=== PATIENT | male | born 1985 | race Two or more races ===

== ENCOUNTER 2024-11-08 16:25 | Emergency (ER) | payer BC, OTHER ==
[~2024-11-08] VITALS: Ht 167.6 cm; Wt 92.4 kg
--- NOTE | 2024-11-08 17:19 | ED.PDOC ---
General HPI Comments HPI: 39 y/o M, Tunisian speaking only, presents to the ED for CC of groin pain. Patient states, he has been experiencing left groin pain with associated intermittent LLQ abdominal pain that radiates to his testicles x5 months. Patient relays, additional symptoms of frequency and dysuria. Patient comments on, LLQ pain worsening when having a bowel moment feeling a sharp bulging pain in that area. Patient endorses that he works out regularly; is unsure if symptoms are related. Patient denies nausea, vomiting, fever, hematuria, testicular swelling, or penile discharge. No other symptoms or modifying factors at this time. VITALS: T:98.5 RR:18 HR:75 BP:119/77 SPO2:97% Past Medical History: ANEMIA Past Surgical History: TONSILLECTOMY HPI: Poor Historian. REVIEW OF SYSTEMS: CONSTITUTIONAL: Denies acute: fever, diaphoresis, chills, HEAD: Denies acute: headache, photophobia Eyes: Denies acute: Double vision, vision loss, eye pain, eye discharge. EARS: Denies acute: tinnitus, hearing loss, ear discharge, ear pain, THROAT: Denies acute: sore throat, swelling, difficulty swallowing , pain with swallowing, change in voice. NECK: Denies acute: neck pain, neck swelling, stiff neck. HEART: Denies acute : chest pain, palpitations, LUNGS: Denies acute: SOB, wheezing, cough, hemoptysis ABDOMEN: Denies acute: Nausea, Vomiting, diarrhea, melena , hematemesis, hematochezia SKIN: Denies acute: rash, redness, lesions, itchiness. EXTREMITIES: Denies acute: calf pain, numbness, tingling, weakness, denies pain in extremity. Denies acute: Low back pain. Neuro: Denies acute: focal neurological deficit, motor or sensory focal neurological deficit, tremors, seizure like activity, confusion, dizziness, change in mental status, loss of bowel or bladder function, cauda equina like symptoms. : Denies acute: , hematuria, flank pain, increase in urinary frequency. PSYCH: Denies acute: hallucination, suicidal ideation, homicidal ideation. PHYSICAL EXAM: General: --mild------acute distress, awake and alert. Head: normocephalic, atraumatic. Neck: supple, trachea is midline, no swelling. Throat: Normal phonation. Eyes:, no erythema, no purulent discharge, no proptosis, no icterus. Heart: regular rate, regular rhythm, no significant murmur appreciated. Lungs: no apparent respiratory distress, Able to speak in full sentences. No wheezing, no rhonchi, no crackles. No stridors Clear to auscultation bilaterally. Abdomen: Left upper quadrant tender to palpation, non distended, soft, no guarding, no rebound, + bowel sounds. Neuro: Awake, Alert, oriented to name, self, situation, follows commands GCS=15. Speech is normal. Skin: no petechia, no purpura, no cyanosis, non-pale, not jaundice. Lower extremities: --no - Pitting edema no deformity, no focal swelling, no calf TTP. Makes eye contact. moves all four extremities. Face: no apparent facial droop. No CVA tenderness to percussion bilaterally. Ambulating in the ED independently. ED COURSE: Chief Complaint: Abdominal Pain Time Seen by MD: 17:00 Reviewed notes: Nurses Notes, Medications, Allergies Allergies: Coded Allergies: NO KNOWN ALLERGIES (Unverified , 11/08/24) Home Meds Active Scripts Ciprofloxacin Hcl (Cipro) 500 Mg Tab, 500 MG PO BID for 7 Days, #14 TAB Prov:GILDARDO RUST DO 11/08/24 Information Source: Patient Mode of Arrival: Ambulatory Severity: Moderate Inability to void: None Timing: Months Duration: Since onset Prehospital treatment: None Onset: Spontaneous Symptoms: Dysuria, Frequency History of: None Location: None Penile discharge: None Modifying factors: None associated signs and symptoms: Dysuria, Frequency Was a procedure done? Was a procedure done?: No Differential Diagnosis Kidney stone (Female): N/A Urinary Problem (Male): Other (DDX include but not limited to diverticulitis, colitis, gastroenteritis, acute abdomen, SBO, enteritis, constipation, volvulus, appendicitis, Gallbladder disease, choledocolithiasis, ascending cholangitis, pancreatitis, intraAbdominal mass/neoplasm, hepatitis, UTI, pylonephritis, kidney stone, aneurysm, dissection, Inflammatory bowel disease, gastroparesis, ischemic bowel.) X-Ray, Labs, Meds, VS Vital Signs Date Time Temp Pulse Resp B/P (MAP) Pulse Ox O2 Delivery O2 Flow Rate FiO2 11/08/24 20:25 86 10 95 Room Air* 0 21 11/08/24 20:25 98.2 86 10 122/83 (96) 95 98.2 11/08/24 17:10 98.5 75 18 119/77 (91) 97 98.5 Lab Test 11/08/24 17:30 11/08/24 16:40 Range/Units White Blood Count 9.6 4.4-10.8 10^3/uL Red Blood Count 6.56 H 4.5-5.90 10^6/uL Hemoglobin 12.6 L 13.5-17.5 g/dL Hematocrit 39.7 L 41.0-53.0 % Mean Corpuscular Volume 60.4 L 80.0-100.0 fL Mean Corpuscular Hemoglobin 19.2 L 28.0-32.0 pg Mean Corpuscular Hemoglobin Concent 31.7 L 32.0-36.0 g/dL Red Cell Distribution Width 15.8 H 11.8-14.3 % Platelet Count 299 140-450 10^3/uL Mean Platelet Volume 8.8 6.9-10.8 fL Neutrophils (%) (Auto) 71.0 37.0-80.0 % Lymphocytes (%) (Auto) 22.6 10.0-50.0 % Monocytes (%) (Auto) 5.4 0.0-12.0 % Eosinophils (%) (Auto) 0.2 0.0-7.0 % Basophils (%) (Auto) 0.8 0.0-2.0 % Neutrophils # (Auto) 6.8 1.6-8.6 10 ^3/uL Lymphocytes # (Auto) 2.2 0.4-5.4 10 ^3/uL Monocytes # (Auto) 0.5 0-1.3 10 ^3/uL Eosinophils # (Auto) 0 0-0.8 10 ^3/uL Basophils # (Auto) 0.1 0-0.2 10 ^3/uL Nucleated Red Blood Cells 0.1 % Sodium Level 140 136-145 mmol/L Potassium Level 4.5 3.5-5.1 mmol/L Chloride Level 105 98-107 mmol/L Carbon Dioxide Level 29 20-31 mmol/L Anion Gap 6 5-15 Blood Urea Nitrogen 11 9-23 mg/dL Creatinine 0.82 0.700-1.30 mg/dL Glomerular Filtration Rate Calc 113 >90 mL/min BUN/Creatinine Ratio 13.4 10.0-20.0 Serum Glucose 93 74-106 mg/dL Lactic Acid Level 1.3 0.4-2.0 mmol/L Calcium Level 10.3 8.7-10.4 mg/dL Total Bilirubin 0.4 0.2-1.0 mg/dL Aspartate Amino Transferase (AST) 15 13-40 U/L Alanine Aminotransferase (ALT) 27 7-40 U/L Alkaline Phosphatase 73 46-116 U/L Creatine Kinase 109 46-171 U/L Troponin I High Sensitivity < 3 L </=54 ng/L C-Reactive Protein High Sensitivity 0.19 <1.0 mg/dL Total Protein 8.2 5.7-8.2 g/dL Albumin 5.2 H 3.2-4.8 g/dL Lipase 30 12-53 U/L Urine Color Light-yellow Yellow Urine Clarity Clear Clear Urine pH 6.5 5.0-9.0 Urine Specific Dougherty 1.011 1.001-1.035 Urine Protein Negative Negative Urine Ketones Negative Negative Urine Blood Trace H Negative /uL Urine Nitrite Negative Negative Urine Bilirubin Negative Negative Urine Urobilinogen Normal Negative mg/dL Urine Leukocyte Esterase Negative Negative /uL Urine RBC 2 0 - 3 /hpf Urine Microscopic WBC < 1 0-3 /HPF Urine Squamous Epithelial Cells None seen <5 /hpf Urine Bacteria None seen None Seen /hpf Urine Mucus Few None Seen Urine Glucose Normal Normal mg/dL [place] [address] Ph: [phone] DIAGNOSTIC IMAGING Diagnostic Imaging Report : [id number] Signed PATIENT: MAMIE BELLAMY ACCT: [id number] UNIT: [id number] : 1985 LOC: ER ROOM / BED: / AGE / SEX: 39 / M ADM STATUS: REG ER SERVICE 1703 ORDERING PHYSICIAN: GILDARDO RUST DO PROCEDURE(s): CXRP - CHEST PORTABLE REASON: weak ORDER NUMBER(s): [id number], ACCESSION NUMBER(s): [id number] CHEST RADIOGRAPH Indication: weak Technique: Single frontal view of the chest was obtained Comparison: None FINDINGS: Lines and Tubes: None Lungs: No focal consolidation. Pleura: No effusion. No pneumothorax. Cardiomediastinal contours: Unremarkable Bones: No acute osseous abnormality. IMPRESSION: 1. No acute cardiopulmonary disease. 2. No pulmonary consolidations. ATED BY: KRYSTIAN FRYE Jr., DO DICTATED DATE/TIME: 11/08/241757 SIGNED BY: KRYSTIAN FRYE Jr., SIGNED DATE/TIME: 11/08/241757 CC: [place] [address] Ph: [phone] DIAGNOSTIC IMAGING Diagnostic Imaging Report : [id number] Signed PATIENT: MAMIE BELLAMY ACCT: [id number] UNIT: [id number] : 1985 LOC: ER ROOM / BED: / AGE / SEX: 39 / M ADM STATUS: REG ER SERVICE 02 ORDERING PHYSICIAN: GILDARDO RUST DO PROCEDURE(s): ABPL - CT AB PEL WO CON-NO ORAL OR IV REASON: LUQ and Left groin pain ORDER NUMBER(s): [id number], ACCESSION NUMBER(s): [id number] Incomplete report Procedure: CT CT AB PEL WO CON-NO ORAL OR IV 11/08/2024 05:34 PM Indication: LUQ and Left groin pain Comparison Study: None Technique: Axial images were obtained and reformatted in coronal and sagittal planes. All CT scans at this medical facility are performed using dose modulation techniques as appropriate to a performed exam including the following: Automated exposure control was utilized; adjustment of the MA and/or KV according to patient size; and use of iterative reconstruction technique. CT Dose: CTDI volume is 11.4 mGy. Dose-length product is 689 mGy*cm FINDINGS: Lower Chest: Unremarkable. Hepatobiliary: Unremarkable. Spleen: Unremarkable. Pancreas: Unremarkable. Adrenal Glands: Unremarkable. tract: The kidneys are normal in size bilaterally without hydronephrosis . A 3 mm nonobstructing stone is seen in the lower pole of the left kidney. The urinary bladder is unremarkable. GI tract: The stomach is grossly normal in appearance. No evidence of small bowel obstruction. The large bowel is unremarkable. The appendix is not visualized. No inflammatory change is noted in the right lower quadrant. Mild victor manuel mesentery at the level of proximal superior mesenteric artery with a few adjacent benign-appearing mesenteric lymph nodes. Lymphatics: No mesenteric, retroperitoneal or periportal lymphadenopathy. Vasculature: The abdominal aorta is normal in caliber. Pelvic Organs: Unremarkable. Bones/soft tissues: No acute abnormality. No inguinal hernia. Other: None. IMPRESSION: 1. Suggestion of mesenteric panniculitis in the left upper quadrant. 2. Subcentimeter nonobstructing left renal stone with no evidence of hydronephrosis. ATED BY: GRISELDA GODWIN MD DICTATED DATE/TIME: 11/08/241853 SIGNED BY: GRISELDA GODWIN MD SIGNED DATE/TIME: 11/08/241853 CC: Time of 1ST Reevaluation: 17:30 Reevaluation 1ST: Unchanged Patient Education/Counseling: Diagnosis, Treatment Family Education/Counseling: Other Comments Patient presented with the above HPI.--abdominal pain----workup was initiated. patient was found with the above mentioned diagnosis. the following medications were ordered: please refer to order lists of meds and tests obtained by myself Dr. Rust. Patient ED course and VS have been stabilized. Patient has been reassessed in the ED and remained in a stable condition. Pertinent incidental findings were discussed with the patient and/or family. Patient/family voices understanding and is agreeable with plan. Patient has been observed in the ED adequate length of time to insure improvement/stability. Escalation of care considered: Consideration of escalation to observation or admission Patient was DISCHARGED home in a stable condition. All the reports of any imaging studies that were ordered by myself were reviewed by myself. Departure 1 Departure Time of Disposition: 19:32 Impression: Primary Impression: Mesenteric panniculitis Additional Impression: Anemia Disposition: HOME / SELF CARE / HOMELESS Condition: Stable Additional Instructions: Additional discharge instructions: You MUST follow-up with your primary care/family doctor in 1 to 2 days. If you are unable to see your primary care/family doctor, please return to our emergency room for re-assessment and re-evaluation in 1 to 2 days. Return to the emergency room here in our facility or to the nearest ER [facility] if your symptoms change or worsen. CONSULTATIONS: you MUST Follow-up for consultation as soon as possible with: -gastroenterology in 1-2 days. Please call for appointment. You MUST call the consultants office yourself to make an appointment. You may need to arrange that through your insurance and/or your primary/family doctor. If you are unable to see the [employer] consultant in 1 to 2 days, you must return to our emergency room (or any other ER of your choice) for re-assessment and re- evaluation. Adequate fluid hydration. Below is a copy of your radiological report for follow up: [place] [address] Ph: [phone] DIAGNOSTIC IMAGING Diagnostic Imaging Report : [id number] Signed PATIENT: MAMIE BELLAMY ACCT: [id number] UNIT: [id number] : 1985 LOC: ER ROOM / BED: / AGE / SEX: 39 / M ADM STATUS: REG ER SERVICE 1703 ORDERING PHYSICIAN: GILDARDO RUST DO PROCEDURE(s): ABPL - CT AB PEL WO CON-NO ORAL OR IV REASON: LUQ and Left groin pain ORDER NUMBER(s): [id number], ACCESSION NUMBER(s): [id number] Incomplete report Procedure: CT CT AB PEL WO CON-NO ORAL OR IV 11/08/2024 05:34 PM Indication: LUQ and Left groin pain Comparison Study: None Technique: Axial images were obtained and reformatted in coronal and sagittal planes. All CT scans at this medical facility are performed using dose modulation techniques as appropriate to a performed exam including the following: Automated exposure control was utilized; adjustment of the MA and/or KV according to patient size; and use of iterative reconstruction technique. CT Dose: CTDI volume is 11.4 mGy. Dose-length product is 689 mGy*cm FINDINGS: Lower Chest: Unremarkable. Hepatobiliary: Unremarkable. Spleen: Unremarkable. Pancreas: Unremarkable. Adrenal Glands: Unremarkable. tract: The kidneys are normal in size bilaterally without hydronephrosis . A 3 mm nonobstructing stone is seen in the lower pole of the left kidney. The urinary bladder is unremarkable. GI tract: The stomach is grossly normal in appearance. No evidence of small bowel obstruction. The large bowel is unremarkable. The appendix is not visualized. No inflammatory change is noted in the right lower quadrant. Mild victor manuel mesentery at the level of proximal superior mesenteric artery with a few adjacent benign-appearing mesenteric lymph nodes. Lymphatics: No mesenteric, retroperitoneal or periportal lymphadenopathy. Vasculature: The abdominal aorta is normal in caliber. Pelvic Organs: Unremarkable. Bones/soft tissues: No acute abnormality. No inguinal hernia. Other: None. IMPRESSION: 1. Suggestion of mesenteric panniculitis in the left upper quadrant. 2. Subcentimeter nonobstructing left renal stone with no evidence of hydronephr osis. ATED BY: GRISELDA GODWIN MD DICTATED DATE/TIME: 11/08/241853 SIGNED BY: GRISELDA GODWIN MD SIGNED DATE/TIME: 11/08/241853 CC: [place] [address] Ph: [phone] DIAGNOSTIC IMAGING Diagnostic Imaging Report : [id number] Signed PATIENT: MAMIE BELLAMY ACCT: [id number] UNIT: [id number] : 1985 LOC: ER ROOM / BED: / AGE / SEX: 39 / M ADM STATUS: REG ER SERVICE 1703 ORDERING PHYSICIAN: GILDARDO RUST DO PROCEDURE(s): CXRP - CHEST PORTABLE REASON: weak ORDER NUMBER(s): [id number], ACCESSION NUMBER(s): [id number] CHEST RADIOGRAPH Indication: weak Technique: Single frontal view of the chest was obtained Comparison: None FINDINGS: Lines and Tubes: None Lungs: No focal consolidation. Pleura: No effusion. No pneumothorax. Cardiomediastinal contours: Unremarkable Bones: No acute osseous abnormality. IMPRESSION: 1. No acute cardiopulmonary disease. 2. No pulmonary consolidations. ATED BY: KRYSTIAN FRYE Jr., DO DICTATED DATE/TIME: 11/08/241757 SIGNED BY: KRYSTIAN FRYE Jr., DO SIGNED DATE/TIME: 11/08/241757 CC: e-Prescriptions Ciprofloxacin Hcl (Cipro) 500 Mg Tab 500 MG PO BID for 7 Days, #14 TAB Prov: GILDARDO RUST DO 11/08/24 Discharged With: Self Critical Care Note Critical Care Time?: No Heart Score Heart Score: Heart Score Response (Comments) Value History N/A 0 EKG N/A 0 Age N/A 0 Risk Factors N/A 0 Troponin N/A 0 Total 0 I personally scribed for GILDARDO RUST DO ([email or web address]) on 11/08/24 at 17:19. Electronically submitted by Diana Mahan ([employer]). I personally scribed for GILDARDO RUST DO ([email or web address]) on 11/08/24 at 17:43. Electronically submitted by Diana Mahan ([employer]). I personally scribed for GILDARDO RUST DO ([email or web address]) on 11/08/24 at 19:40. Electronically submitted by Diana Mahan ([email or web address]). I personally scribed for GILDARDO RUST DO ([email or web address]) on 11/08/24 at 19:41. Electronically submitted by Diana Mahan ([employer]). GILDARDO RUST DO Nov 08, 2024 17:19
[2024-11-08 17:55] LABS: Eosinophils # (auto) 0 10 ^3/uL (0-0.8); Eosinophils % (auto) 0.2 % (0.0-7.0); Hemoglobin 12.6 g/dL (13.5-17.5); White Blood Cell 9.6 10^3/uL (4.4-10.8)
[2024-11-08 17:57] LABS: Urine Bacteria None Seen /hpf (None Seen)
[2024-11-08 17:58] LABS: Basophils # (auto) 0.1 10 ^3/uL (0-0.2); Basophils % (auto) 0.8 % (0.0-2.0); Hematocrit 39.7 % (41.0-53.0); Lymphocytes # (auto) 2.2 10 ^3/uL (0.4-5.4); Lymphocytes % (auto) 22.6 % (10.0-50.0); Mean Corpuscular Hemoglobin 19.2 pg (28.0-32.0); Mean Corpuscular Hgb Conc. 31.7 g/dL (32.0-36.0); Mean Corpuscular Volume 60.4 fL (80.0-100.0); Monocytes # (auto) 0.5 10 ^3/uL (0-1.3); Monocytes % (auto) 5.4 % (0.0-12.0); Neutrophils # (auto) 6.8 10 ^3/uL (1.6-8.6); Nucleated Red Blood Cells % 0.1 %; Platelet Count (auto) 299 10^3/uL (140-450); Red Blood Cells 6.56 10^6/uL (4.5-5.90); Red Cell Distribution Width 15.8 % (11.8-14.3)
--- NOTE | 2024-11-08 18:01 | DVH ---
CHEST RADIOGRAPH Indication: weak Technique: Single frontal view of the chest was obtained Comparison: None FINDINGS: Lines and Tubes: None Lungs: No focal consolidation. Pleura: No effusion. No pneumothorax. Cardiomediastinal contours: Unremarkable Bones: No acute osseous abnormality. IMPRESSION: 1. No acute cardiopulmonary disease. 2. No pulmonary consolidations.
[2024-11-08 18:09] LABS: Alanine Aminotransferase 27 U/L (7-40); Alkaline Phosphatase 73 U/L (46-116); Anion Gap 6 (5-15); Aspartate Aminotransferase 15 U/L (13-40); BUN/Creatinine Ratio 13.4 (10.0-20.0); Blood Urea Nitrogen 11 mg/dL (9-23); Calcium 10.3 mg/dL (8.7-10.4); Carbon Dioxide 29 mmol/L (20-31); Chloride 105 mmol/L (98-107); Glucose 93 mg/dL (74-106); Lipase 30 U/L (12-53); Potassium 4.5 mmol/L (3.5-5.1); Sodium 140 mmol/L (136-145)
[2024-11-08 18:10] LABS: Bilirubin, Total 0.4 mg/dL (0.2-1.0); Creatine Kinase IFCC 109 U/L (46-171)
[2024-11-08 18:12] LABS: Albumin 5.2 g/dL (3.2-4.8); Total Protein 8.2 g/dL (5.7-8.2)
[2024-11-08 18:21] LABS: Urine Blood TRACE /uL (Negative); Urine Clarity Clear (Clear); Urine Color Light-Yellow (Yellow); Urine Mucus FEW (None Seen); Urine Protein, UAD Negative (Negative); Urine Specific Gravity 1.011 (1.001-1.035); Urine Squamous Epithelial Cell None Seen /hpf (<5); Urine Urobilinogen Normal (Negative); Urine pH 6.5 (5.0-9.0)
[2024-11-08 18:22] LABS: Urine WBC < 1 /HPF (0-3)
[2024-11-08 18:37] LABS: CRP High Sensitivity 0.19 mg/dL (<1.0)
--- NOTE | 2024-11-08 18:57 | DVH ---
Incomplete report Procedure: CT CT AB PEL WO CON-NO ORAL OR IV 11/08/2024 05:34 PM Indication: LUQ and Left groin pain Comparison Study: None Technique: Axial images were obtained and reformatted in coronal and sagittal planes. All CT scans at this medical facility are performed using dose modulation techniques as appropriate to a performed e xam including the following: Automated exposure control was utilized; adjustment of the MA and/or KV according to patient size; and use of iterative reconstruction technique. CT Dose: CTDI volume is 11. 4 mGy. Dose-length product is 689 mGy*cm FINDINGS: Lower Chest: Unremarkable. Hepatobiliary: Unremarkable. Spleen: Unremarkable. Pancreas: Unremarkable. Adrenal Glands: Unremarkable. tract: The kidneys are normal in size bilaterally without hydronephrosis . A 3 mm nonobstructing stone is seen in the lower pole of the left kidney. The urinary bladder is unremarkable. GI tract: The stomach is grossly normal in appearance. No evidence of small bowel obstruction. The la rge bowel is unremarkable. The appendix is not visualized. No inflammatory change is noted in the rig ht lower quadrant. Mild victor manuel mesentery at the level of proximal superior mesenteric artery with a fe w adjacent benign-appearing mesenteric lymph nodes. Lymphatics: No mesenteric, retroperitoneal or periportal lymphadenopathy. Vasculature: The abdominal aorta is normal in caliber. Pelvic Organs: Unremarkable. Bones/soft tissues: No acute abnormality. No inguinal hernia. Other: None. IMPRESSION: 1. Suggestion of mesenteric panniculitis in the left upper quadrant. 2. Subcentimeter nonobstructing left renal stone with no evidence of hydronephrosis.
[2024-11-08] MEDS ORDERED: CIPR-173 PO (19:45)
[2024-11-08 20:25] VITALS: BP 122/83; PULSE 86; RESP 10; TEMP 98.2; O2SAT 95
== END 2024-11-08 20:29 | disposition home or self-care (01) ==
LOC: ER 16:25
DX: K65.4 Sclerosing mesenteritis (principal); D64.9 Anemia, unspecified; Z90.89 Acquired absence of other organs
CPT/HCPCS: 36415; 71045; 74176; 80053; 81001; 82550; 83605; 83690; 84484; 85025; 86141; 87040; 87086

== ENCOUNTER 2024-11-10 14:51 | Emergency (ER) | payer BC ==
[~2024-11-10] VITALS: Ht 165.1 cm; Wt 93.1 kg
[~2024-11-10 14:51] MED LIST: CIPR-173 PO
[2024-11-10 15:24] VITALS: BP 111/76; PULSE 93; RESP 18; TEMP 98.1; O2SAT 97
--- NOTE | 2024-11-10 15:48 | ED.PDOC ---
History of Present Illness HPI Comments A 39 YEAR OLD MALE PRESENTS TO THE ED WITH COMPLAINT OF LEFT TESTICLE PAIN AND ABDOMINAL PAIN. PATIENT STATES HE HAS BEEN EXPERIENCING LEFT TESTICLE PAIN OFF AND ON FOR THE PAST 6 YEARS WITH HIS PAIN RETURNING TODAY. PATIENT ALSO NOTES HE HAS BEEN EXPERIENCING LEFT LOWER QUADRANT ABDOMINAL PAIN OFF AND ON FOR THE PAST 1.5 MONTHS AND NOTES HIS PAIN RETURNED TODAY WITH NAUSEA. PATIENT WAS HERE IN THIS ED 2 DAYS AGO FOR THE SAME COMPLAINTS WHERE A CT SCAN AND MULTIPLE BLOOD TESTS WERE DONE ALL OF WHICH WERE NORMAL EXCEPT FOR THE CT SCAN REVEALING MESENTERIC PANNICULITIS AND A NONOBSTRUCTING 3 MM LEFT RENAL STONE. PATIENT WAS ONLY PRESCRIBED CIPRO, BUT NO PAIN MEDICINE. PATIENT NOTES THE MAIN REASON HE CAME INTO THE ED IS BECAUSE HE DID NOT HAVE ANY PAIN MEDICINE AND STATES HIS PAIN STARTED AGAIN TODAY. PATIENT DENIES HEMATURIA, FLANK PAIN, DYSURIA, FEVER, CHILLS, SHORTNESS OF BREATH, CHEST PAIN, VOMITING, HEADACHE, OR OTHER COMPLAINTS. NO OTHER SYMPTOMS OR MODIFYING FACTORS AT THIS TIME. PATIENT IS ALERT, ORIENTED X 4, AND HAS STEADY GAIT. Chief Complaint: Abdominal Pain Time Seen by MD: 14:54 Primary Care Provider: NONE Reviewed Notes: Nurses Notes, Medications, Allergies Allergies: Coded Allergies: NO KNOWN ALLERGIES (Unverified , 11/08/24) Home Meds Active Scripts Tamsulosin Hcl (Flomax) 0.4 Mg Cap, 1 CAP PO DAILY, #20 CAP Prov:ALENA ARREAGA 11/10/24 Ibuprofen (Ibuprofen) 800 Mg Tab, 1 TAB PO TID, #30 TAB Prov:ALENA ARREAGA 11/10/24 Ciprofloxacin Hcl (Cipro) 500 Mg Tab, 500 MG PO BID for 7 Days, #14 TAB Prov:GILDARDO RUST DO 11/08/24 Information Source: Patient Mode of Arrival: Ambulatory Severity: Moderate Timing: Days Duration: Since onset, Days Prehospital treatment: NTG Medication Refill: For: Other (LEFT TESTICULAR PAIN AND LEFT LOWER ABDOMINAL PAIN) Past Medical History PAST MEDICAL HISTORY: Denies Surgical History: Denies all surgeries Family History Family History: Reviewed,noncontributory to illness Social History Smoker: Non-Smoker Alcohol: Denies ETOH Use Drugs: Denies Drug Use Lives In: Home Constitutional: denies: chills, diaphoresis, fatigue, fever, malaise, sweats, weakness, others EENTM: denies: blurred vision, double vision, ear bleeding, ear discharge, ear drainage, ear pain, ear ringing, eye pain, eye redness, hearing loss, mouth pain, mouth swelling, nasal discharge, nose bleeding, nose congestion, nose pain, photophobia, tearing, throat pain, throat swelling, voice changes, others Respiratory: denies: cough, hemoptysis, orthopnea, SOB at rest, shortness of breath, SOB with excertion, stridor, wheezing, others Cardiovascular: denies: chest pain, dizzy spells, diaphoresis, Dyspnea on exertion, edema, irregular heart beat, left arm pain, lightheadedness, palpitations, PND, syncope, others Gastrointestinal: reports: abdominal pain; denies: abdomen distended, blood streaked bowels, constipated, diarrhea, dysphagia, difficulty swallowing, hematemesis, melena, nausea, poor appetite, poor fluid intake, rectal bleeding, rectal pain, vomiting, others Genitourinary: reports: testicle pain; denies: burning, dysuria, flank pain, frequency, hematuria, incontinence, penile discharge, penile sore, pain, testicle swelling, urgency, others Neurological: denies: dizziness, fainting, headache, left sided numbness, left sided weakness, numbness, paresthesia, pre-existing deficit, right sided numbness, right sided weakness, seizure, speech problems, tingling, tremors, weakness, others Musculoskeletal: denies: back pain, gout, joint pain, joint swelling, muscle pain, muscle stiffness, neck pain, others Integumetry: denies: bruises, change in color, change in hair/nails, dryness, laceration, lesions, lumps, rash, wounds, others Allergic/Immunocompromised: denies: Difficulty Healing, Frequent Infections, Hives, Itching, others Hematologic/Lymphatic: denies: anemia, blood clots, easy bleeding, easy bruising, swollen glands, others Endocrine: denies: excessive hunger, excessive sweating, excessive thirst, excessive urination, flushing, intolerance to cold, intolerance to heat, unexplained weight gain, unexplained weight loss, others Psychiatric: denies: anxiety, bipolar disorder, depression, hopeless, panic disorder, schizophrenia, sleepless, suicidal, others All Other Systems: Reviewed and Negative Physical Exam General Appearance: No Apparent Distress, Normal HEENT: Normal ENT Inspection, PERRL/EOMI, Pharynx Normal, TMs Normal Neck: Full Range of Motion, Non-Tender, Normal, Normal Inspection Respiratory: Chest Non-Tender, Lungs Clear, No Accessory Muscle Use, No Respiratory Distress, Normal Breath Sounds Cardiovascular: No Edema, No JVD, No Murmur, No Gallop, Normal Peripheral Pulses, Regular Rate/Rhythm Breast Exam: Deferred Gastrointestinal: LLQ, No Organomegaly, No Pulsatile Mass, Normal Bowel Sounds, Soft, Tenderness (LEFT SIDE ABD, NO GUARDING AND REBOUND TENDERNESS. ) Genitalia: Testicle (TENDERNESS LEFT SIDE TESTICLE, NO TESTICLE TORSTION, BILATERAL TESTICLE DESCENDING. ) Pelvic: Normal External Exam Rectal: Deferred Extremities: No calf tenderness, Normal capillary refill, Normal inspection, Normal range of motion, Non-tender, No pedal edema Musculoskeletal : Apperance: Normal Neurologic: Alert, pneumatic tester mechanic II-XII nml as Tested, No Motor Deficits, Normal Affect, Normal Mood, No Sensory Deficits Cerebellar Function: Normal Reflexes: Normal Skin: Dry, Normal Color, Warm Peripheral Pulses: 2+ carotid (R), 2+ carotid (L) Lymphatic: No Adenopathy Was a procedure done? Was a procedure done?: No Differential Dx Considerations may include: EPIDIDYMAL CYST, EPIDIDYMITIS, HYDROCELE, VARICOCELE, TESTICULAR TORSION, HISTORY OF RENAL STONE, PAIN MANAGEMENT X-Ray, Labs, Meds, VS Vital Signs Date Time Temp Pulse Resp B/P (MAP) Pulse Ox O2 Delivery O2 Flow Rate FiO2 11/10/24 15:24 98.1 93 18 111/76 (88) 97 98.1 11/10/24 15:24 93 18 97 Room Air 11/10/24 15:13 98.1 93 18 111/76 (88) 97 98.1 Current Medications Medications (Trade) Dose Ordered Sig/Preeti Route Start Time Stop Time Status Last Admin Ketorolac Tromethamine (Toradol Injection) 60 mg ONCE ONCE IM 11/10/24 15:45 11/10/24 15:46 DC 11/10/24 15:55 EXAM: US Scrotum and US Duplex Arterial/Venous of the Testicles, Complete CLINICAL INDICATION: LEFT TESTICLE PAIN X YEARS TECHNIQUE: Real-time ultrasound of the scrotum with color Doppler and image documentation. Real-time duplex ultrasound scan of the arterial and venous flow of the scrotal contents with color Doppler flow and spectral waveform analysis. COMPARISON: None FINDINGS: RIGHT TESTICLE: Unremarkable. No torsion. The right testicle measures 4.8 x 2.5 x 2.5 cm. LEFT TESTICLE: Unremarkable. No torsion. The left testicle measures 4.2 x 2.2 x 2.8 cm. EPIDIDYMIDES: Right epididymis measures up to 1.1 cm. Left epididymis measures up to 1.1 cm. SCROTUM: Small bilateral hydroceles. Probable left varicocele. OTHER FINDINGS: . . IMPRESSION: Small bilateral hydroceles. ATED BY: DELORES AUGUSTIN MD DICTATED DATE/TIME: 11/10/241650 SIGNED BY: DELORES AUGUSTIN MD SIGNED DATE/TIME: 11/10/241650 CC: X-Ray, Labs, Meds, VS Comment EXTERNAL MEDICAL RECORDS REVIEWED: [NONE] INDEPENDENT HISTORIANS: [NONE] SOCIAL DETERMINANTS OF HEALTH: [NONE] LABS ORDERED: NONE REVIEWED AND INTERPRETED RESULTS: NONE PATIENT'S PREVIOUS CHARTS, LABS, AND IMAGING WAS REVIEWED BY ME, ALL OF WHICH WAS NORMAL EXCEPT FOR THE NONOBSTRUCTING LEFT RENAL STONE. IMAGING ORDERED: US GEN/SCROTUM: [INTERPRETED BY [employer].S. TECH. MILD HYDROCELE SEEN IN BILATERAL TESTICLES. VARICOCELE SEEN AND LEFT TESTICLE. NO TORSION SEEN. PENDING RADIOLOGY REVIEW.] TREATMENTS ORDERED: TORADOL 60MG IM PROCEDURES PERFORMED: NONE CRITICAL CARE TIME: NONE I HAVE DISCUSSED THE PATIENT WITH THE ATTENDING PHYSICIAN DR. SOLANO AND HE AGREES WITH THE PATIENT'S PLAN OF CARE AND DISPOSITION. BASED ON HISTORY OF PRESENT ILLNESS, AND PHYSICAL EXAM, PATIENT WILL BE DISCHARGED HOME. DISCUSSED PLAN FOR DISCHARGE HOME WITH RX [FLOMAX AND IBUPROFEN 800MG]. MEDICATION WARNINGS GIVEN. SHARED DECISION MAKING: PATIENT INSTRUCTED TO FOLLOW UP WITH PRIMARY CARE PROVIDER IN 1-2 DAYS FOR RE-EVALUATION OF SYMPTOMS. PATIENT VERBALIZES UNDERSTANDING TO RETURN TO ED FOR NEW OR WORSENING SYMPTOMS OR IF FOLLOW UP WITH PCP CANNOT BE OBTAINED. PATIENT FEELS COMFORTABLE GOING HOME AT THIS TIME. ALL QUESTIONS ADDRESSED AT TIME OF DISCHARGE. Images Reviewed?: Images reviewed and evaluated by me Time of 1ST Reevaluation: 17:00 Reevaluation 1ST: Improved Patient Education/Counseling: Diagnosis, Treatment, Need For Follow Up Family Education/Counseling: Diagnosis, Treatment, Need For Follow Up Medical Screening: No EMC Exist At This Time Departure 1 Departure Time of Disposition: 17:00 Impression: Primary Impression: Left varicocele Additional Impressions: Bilateral hydrocele History of renal stone Disposition: HOME / SELF CARE / HOMELESS Condition: Stable Additional Instructions: FOLLOW-UP WITH PCP IN 1 TO 2 DAYS. TAKE MEDICATIONS PRESCRIBED. RETURN TO ED FOR ANY NEW OR WORSENING SYMPTOMS. e-Prescriptions Tamsulosin Hcl (Flomax) 0.4 Mg Cap 1 CAP PO DAILY, #20 CAP Prov: ALENA ARREAGA 11/10/24 Ibuprofen (Ibuprofen) 800 Mg Tab 1 TAB PO TID, #30 TAB Prov: ALENA ARREAGA 11/10/24 Discharged With: Self Critical Care Note Critical Care Time?: No Stability Stability form required: No I personally scribed for ALENA ARREAGA ([email or web address]) on 11/10/24 at 15:48. Electronically submitted by Aiden Dougherty ([email or web address]). I personally scribed for ALENA ARREAGA ([email or web address]) on 11/10/24 at 16:36. Electronically submitted by Aiden Dougherty ([email or web address]). I personally scribed for NADEEM SOLANO MD ([email or web address]) on 11/10/24 at 16:57. Electronically submitted by Aiden Dougherty ([email or web address]). ALENA ARREAGA Nov 10, 2024 15:48 NADEEM SOLANO MD Nov 10, 2024 16:57
[2024-11-10] MEDS: KETOROLAC TROMETH 60MG/2ML VIAL IM ONE (15:55)
[2024-11-10] MEDS ORDERED: TAMS-35 PO (16:51)
[2024-11-10] MEDS ORDERED: IBUP-1456 PO (16:51)
--- NOTE | 2024-11-10 16:54 | DVH ---
EXAM: US Scrotum and US Duplex Arterial/Venous of the Testicles, Complete CLINICAL INDICATION: LEFT TESTICLE PAIN X YEARS TECHNIQUE: Real-time ultrasound of the scrotum with color Doppler and image documentation. Real-dolly e duplex ultrasound scan of the arterial and venous flow of the scrotal contents with color Doppler f low and spectral waveform analysis. COMPARISON: None FINDINGS: RIGHT TESTICLE: Unremarkable. No torsion. The right testicle measures 4.8 x 2.5 x 2.5 cm. LEFT TESTICLE: Unremarkable. No torsion. The left testicle measures 4.2 x 2.2 x 2.8 cm. EPIDIDYMIDES: Right epididymis measures up to 1.1 cm. Left epididymis measures up to 1.1 cm. SCROTUM: Small bilateral hydroceles. Probable left varicocele. OTHER FINDINGS: . . IMPRESSION: Small bilateral hydroceles.
== END 2024-11-10 17:02 | disposition home or self-care (01) ==
LOC: ER 14:56
DX: I86.1 Scrotal varices (principal); N43.3 Hydrocele, unspecified; Z87.442 Personal history of urinary calculi; Z79.1 Long term (current) use of non-steroidal anti-inflammatories (NSAID); Z79.899 Other long term (current) drug therapy
CPT/HCPCS: 76870; 96372; 99285; J1885